=== PATIENT | female | born 2000 | race Caucasian/White ===

== ENCOUNTER 2021-02-04 14:26 | Emergency (ER) | payer MEDICAID, SELFPAY ==
[~2021-02-04] VITALS: Ht 167.6 cm; Wt 88.5 kg
[2021-02-04 14:45] VITALS: BP_SYST 136
--- NOTE | 2021-02-04 14:45 | NUR ---
PT TRIAGED NO ACUTE DISTRESS NOTED,COVID (+) PER PT, PT WAITING OUTSIDE FOR EVALUATION
--- NOTE | 2021-02-04 14:50 | NUR ---
ER went outside to Evaluate the pt, unable to locate.
[2021-02-04 15:00] VITALS: BP_SYST 136
== END 2021-02-04 19:14 | disposition left against medical advice (07) ==
LOC: SED 14:26
DX: U07.1 COVID-19 (principal); Z53.21 Procedure and treatment not carried out due to patient leaving prior to being seen by health care provider